=== PATIENT | female | born 1990 | race Caucasian/White ===

== ENCOUNTER 2018-12-15 00:33 | Inpatient (IN) | payer OTHER ==
--- OUTSIDE RECORDS SUMMARY | 2018-12-15 06:06 | XMS REPORT | Clinical Summary ---
:1990 Author Organization [facility] Address [address] [place] [id number] Care Team Providers Name Role Phone Eliana Iqbal MD Primary Care Provider Allergies No Known Allergies Medications Medication Sig Dispensed Refills Start Date End Date Status ESTARYLLA 0.25-35 TAKE 1 TABLET(S) 28 tablet 5 03/06/2016 Active mg-mcg per tablet BY MOUTH DAILY DIRECTED. Active Problems Problem Noted Date control counseling 03/06/2016 Atypical mole 03/06/2016 Nodular acne 03/06/2016 Family History Medical History Relation Name Comments No Known Problems Father Hypertension Mother No Known Problems Sister Relation Name Status Comments Father Alive Maternal Grandfather Maternal Grandmother Mother Alive Paternal Grandfather Paternal Grandmother Alive Sister Alive Social History Tobacco Use Types Packs/Day Years Used Date Never Smoker Smokeless Tobacco: Never Used Alcohol Use Drinks/Week oz/Week Comments Yes 2 Glasses of wine 1.2 Sex Assigned at Date Recorded Not on file Job Start Date Occupation Industry Not on file Not on file Not on file Travel History Travel Start Travel End No recent travel history available. Last Filed Vital Signs Not on file Plan of Treatment Health Maintenance Due Date Last Done Comments INFLUENZA VACCINE 12/17/2018 Results Not on fileafter 12/14/2017 ([facility]) [place] [address] Advance Directives Patient has advance care planning documents on file. For more information, please contact:Gene [id number] [place] [address]
[2018-12-15] MEDS ORDERED: Ringers Lactate 1,000 ML IV PRN (06:11)
[2018-12-15] MEDS ORDERED: Ringers Lactate 1,000 ML IV SCH (07:00)
[2018-12-15] MEDS ORDERED: OXYTOCIN/LR 20 UNIT/1,000 ML BAG IV SCH ×2 (07:00→14:00)
[2018-12-15 07:40] LABS: Absolute Lymphocytes (CBC) 2.2 K/uL (0.7-4.9); Basophils % 0.5 % (0-1.3); Hematocrit 34.7 % (36.0-45.0); Lymphocytes % 20.6 % (15.3-44.8); MPV 10.2 fL (7.6-11.3); RBC Red Blood Cell Count 3.83 M/uL (3.86-4.86)
[2018-12-15] MEDS ORDERED: ROPIVACAINE HCL 100 ML IV PRN (07:47)
[2018-12-15] MEDS ORDERED: ROPIVACAINE HCL 0.2% 20ML AMP IV ONE (07:48)
[2018-12-15] MEDS ORDERED: FENTANYL CITR 100 MCG/2 ML IV ONE (07:49)
[2018-12-15] MEDS ORDERED: METHYLERGONOVINE 0.2MG/ML AMP IM PRN ×2 (07:50→13:12)
[2018-12-15] MEDS ORDERED: CARBOPROST TROME 250 MCG/ML IM PRN ×2 (07:50→13:12)
--- NOTE | 2018-12-15 08:02 | PREOPHP ---
Date of Admission: 12/15/2018 History Of Present Illness: Ms. Jenkins is a 28-year-old , female, 1, para 0 , now at 39 weeks gestation. She will be admitted for induction of labor secondary to term with favorable cervix. She has been followed by me during this with complications of pret erm cervical dilatation and increase in contractions, treated initially with nifedipine. This has be en stopped. She now will be 39 weeks tomorrow and cervix is 2+ to 3 cm dilated. She will be admitte d for elective induction. Past Medical History: Please see record. Family History: Please see record. Review of Systems: She reports no recent cough, cold, fever, or chills. No recent nausea or vomiting. She denies any b reast knots or lumps. She denies any bowel or bladder issues other than going to bathroom frequently . has been active. She denies any vaginal bleeding or spotting. Physical Examination: General: Reveals very pleasant female, in no apparent distress. Neck: Supple without adenopathy or thyromegaly. Lungs: Clear. Cardiac: Regular rate and rhythm without murmurs. Breasts: Not examined. Abdomen: Estimated weight approximately 7 pounds with heart tones well heard. Pelvic: Normal female external genitalia. Vaginal wall is pink and rugated. Cervix 2+ to 3 cm, 85% effaced, vertex at -1 station. Extremities: No cyanosis, clubbing, or edema. Impression: A 39-week , favorable cervix. Plan: Patient will be admitted for induction of labor tomorrow with very early placement of epidural catheter. She has beta strep screen negative. MPG/MODL Voice ID: [id number]
[2018-12-15 08:24] LABS: Urine Appearance CLEAR; Urine Bilirubin NEGATIVE (NEG); Urine Blood NEGATIVE (NEG); Urine Color YELLOW; Urine Glucose NEGATIVE (NEG); Urine Protein NEGATIVE (NEG); Urine Urobilinogen 0.2 mg/dL (0.2-1.0)
[2018-12-15 09:07] LABS: Urine Microscopic Reflex ORDER UMIC
[2018-12-15] MEDS ORDERED: PROMETHAZINE 25 MG/ML VIAL IV ONE (09:45)
[2018-12-15] MEDS ORDERED: PROMETHAZINE 25 MG/ML VIAL ONE (10:09)
[2018-12-15 10:49] LABS: Urine Amorphous Sediment 1+ /HPF (NONE SEEN); Urine Bacteria >50 /HPF (<20); Urine Culture Reflex Order REFLEXED; Urine RBC NONE SEEN /HPF (NONE SEEN)
[2018-12-15 11:32] VITALS: BMI 26.6
[2018-12-15] MEDS ORDERED: LIDOCAINE 1% 20 ML MDV ONE (12:08)
[2018-12-15] MEDS ORDERED: METHYLERGONOVINE 0.2 MG TAB PO PRN (13:12)
[2018-12-15] MEDS ORDERED: ONDANSETRON 4 MG (ODT) TAB PO PRN (13:12)
[2018-12-15] MEDS ORDERED: Oxycodone HCl/Acetaminophen 1 TAB TAB PO PRN (13:12)
--- NOTE | 2018-12-15 13:15 | P.BOP ---
Preoperative diagnosis: 39 wk. Postoperative diagnosis: same, delivery viable female infant Primary procedure: SCVD Secondary procedure: repair bilateral periurethral lacerations Estimated blood loss: Less than 200ml Anesthesia: epidural Complications: None Transferred to: Other ([id number]) Condition: Good
[2018-12-15] MEDS: IBUPROFEN 200 MG TAB PO PRN ×2 (14:15→19:55)
[2018-12-15 21:58] LABS: RPR (Rapid Plasma Reagin) NON-REACT (NON-REACT)
--- NOTE | 2018-12-16 00:38 | DN ---
Surgeon: Stephen Clark MD Indications: Ms. Jenkins is a 28-year-old, , female, 1 , para 0, at approximately 39 weeks' gestation, admitted for elective induction of labor secondary to term with favorable cervix. She was noted to be 3 cm on admission, 90% effaced, vertex, and -1 station. Description Of Procedure: After placement of epidural catheter, Pitocin induction was begun and artificial rupture of membranes performed. She had a first stage of labor of approximately 3 hours and 15 minutes, second stage of labor of 20 minutes. She delivered by spontaneous controlled vaginal delivery a 7-pound 6-ounce female infant with marked vertex molding and vertex OA presentation. After delayed cord clamping and milking of the cord toward the umbilicus, the cord was clamped, cut, and the infant placed on the mother's upper abdomen. Cord blood was obtained. Placenta was spontaneously expelled and appeared to be intact. Ms. Jenkins suffered first-degree bilateral periurethral lacerations which were repaired in usual fashion with simple sutures of 3-0 Vicryl. Estimated total blood loss was less than 200 cc. Patient tolerated all procedures well, had received 12.5 mg of Phenergan IV for nausea during her labor course, but otherwise received no other medications. was 7 pounds 6 ounces. Apgars 9 and 9. MPG/MODL Voice ID: [id number] Report ID: [id number] MTDD
[2018-12-16] MEDS: IBUPROFEN 200 MG TAB PO PRN (04:10)
[2018-12-16] MEDS ORDERED: CEFAZOLIN/SWI 2gm 2 GM/20 ML SYR ONE (06:57)
[2018-12-16 13:16] VITALS: BP 118/60; TEMP 99
--- NOTE | 2018-12-17 05:05 | DS ---
Date of Discharge: 12/16/2018 Final Hospital Discharge Diagnosis: 39-week , delivered. Complications: None. Procedures: Placement of epidural catheter, artificial rupture of membranes, Pitocin induction of la bor, spontaneous controlled vaginal delivery of viable female infant, repair of first-degree bilatera l periurethral lacerations. Hospital Course: The patient is a 28-year-old, , female, 1, para 0, at 39 w eeks' gestation, admitted for elective induction secondary to term with favorable cervix. She had an uneventful labor and delivery and delivered a 7-pound 6-ounce female , 9 and 9 . She was dismissed on the first day, ambulatory, on a select diet, to be with routine po stvaginal delivery activity restrictions, to be seen back in my office in approximately 2 weeks. Admission hemoglobin and hematocrit were 11.8 and 34.7, dismissal hematocrit 33.4. She had an essent ially negative urinalysis. She is RPR nonreactive and Rh positive blood type. She was dismissed to take Tylenol or ibuprofen for discomfort relief and to continue taking her iron and vitamins . NASRIN/LIZBETH Voice ID: [id number] Report ID: [id number]
[2018-12-17 19:38] LABS: HBsAG Nonreactive (Nonreactive)
== END 2018-12-16 16:30 | disposition home or self-care (01) | DRG 807 ==
LOC: 2ND-WC 06:04
PROVIDERS: ADMIT Specialist; ATTEND Specialist
PROC: 10907ZC Drainage of Amniotic Fluid, Therapeutic from Products of Conception, Via Natural or Artificial Opening (ICD-10-PCS; principal; 2018-12-15)
PROC: 10E0XZZ Delivery of Products of Conception, External Approach (ICD-10-PCS; 2018-12-15)
PROC: 0HQ9XZZ Repair Perineum Skin, External Approach (ICD-10-PCS; 2018-12-15)
PROC: 3E033VJ Introduction of Other Hormone into Peripheral Vein, Percutaneous Approach (ICD-10-PCS; 2018-12-15)
DX: O71.82 Other specified trauma to perineum and vulva (principal); Z37.0 Single live birth; Z3A.39 39 weeks gestation of pregnancy
CPT/HCPCS: 36415; 81003; 81015; 85014; 85025; 86592; 86901; 87086; 87088; 87340; J0690; J2210; J2550; J2590; J2795; J3010